=== PATIENT | female | born 1980 | race Caucasian/White ===

== ENCOUNTER 2020-11-27 09:48 | Outpatient (CLI) | payer MEDICARE ==
[2020-11-28 00:34] LABS: SARS-CoV-2 PCR by NAA Not Detected (NotDetected)
== END 2020-11-27 09:49 | disposition home or self-care (01) ==
LOC: CSHLAB 09:48
PROVIDERS: ATTEND Otolaryngology Plastic Surgery within the Head & Neck
DX: Z01.812 Encounter for preprocedural laboratory examination (principal); Z20.822 Contact with and (suspected) exposure to COVID-19; K13.70 Unspecified lesions of oral mucosa; F17.210 Nicotine dependence, cigarettes, uncomplicated
CPT/HCPCS: 85014; U0003; U0005

== ENCOUNTER 2021-09-01 19:05 | Inpatient (IN) | payer MEDICARE ==
[2021-09-01 19:49] LABS: Bilirubin Neg (Negative); Blood, Urine Negative (Negative); Clarity Clear (Clear); Glucose, Urine (Dipstick) Normal (Negative); Ketone, Urine Negative (Negative); Leukocyte 25 (Negative); Nitrite Negative (Negative); Protein, Urine (Dipstick) Negative (Neg-Trace); Specific Gravity, Urine 1.005 (1.002-1.036); Urobilinogen Normal mg/dL (Less than 2); pH, Urine 6.5 (5.0-9.0)
[2021-09-01] MEDS ORDERED: Morphine 4 MG/ML VIAL ONE (19:52)
[2021-09-01 19:53] LABS: #Basophils 0.1 10x3/uL (0.0-0.2); #Eosinphils 0.2 10x3/uL (0.0-0.5); #Neutrophils 8.8 10x3/uL (1.5-8.4); %Basophils 0.8 % (0.0-2.0); %Eosinophils 1.8 % (0.0-6.0); %Monocytes 8.6 % (0.0-10.0); %Neutrophils 73.4 % (40.0-75.0); Hemoglobin 16.9 g/dL (12.0-15.5); Mean Corpuscular HGB CONC 33.9 g/dL (32.0-36.0); Mean Corpuscular Hemoglobin 33.7 pg (27.0-33.0); Mean Corpuscular Volume 99.4 fl (81.6-98.3); Mean Platelet Volume 9.7 fl (7.4-10.4); Platelet Count 358 10x3/uL (150-450); RBC Distribution Width 11.9 % (11.5-14.5); Red Blood Cell (RBC) Count 5.02 10x6/uL (3.90-5.03)
[2021-09-01] MEDS ORDERED: Ketorolac Tromethamine 30 MG/ML VIAL ONE (19:53)
[2021-09-01 19:56] LABS: BHCG - Serum Negative (NEGATIVE); Pregs Control Background? CLEAR/WHITE (CLR/WHITE); Pregs Control Bar Appear? YES (CONTROL BAR)
[2021-09-01 19:59] LABS: Bacteria/HPF 1+ HPF (None Seen); Mucous/LPF Rare LPF (<2+); RBC/HPF None Seen HPF (0-3); Squamous Epithelial 0-3 HPF (0-3); WBC/HPF 0-3 HPF (0-3)
[2021-09-01 20:04] LABS: ALT (SGPT) 262 U/L (8-55); AST (SGOT) 711 U/L (5-34); Albumin 4.4 g/dL (3.5-5.0); Alkaline Phosphatase 347 U/L (40-110); Anion Gap 16 mmol/L (10-20); BUN (Urea Nitrogen) 6 mg/dL (7.0-18.7); Bilirubin, Total 0.9 mg/dL (0.2-1.2); Calc. Creatinine Clearance 0 mL/min (70-130); Carbon Dioxide 27 mmol/L (22-29); Chloride 102 mmol/L (98-107); Globulin 3.3 g/dL (2.4-3.5); Glucose 88 mg/dL (70-105); Lipase 40 U/L (8-78); Potassium 3.5 mmol/L (3.5-5.1); Protein, Total 7.7 g/dL (6.0-8.3); Sodium 141 mmol/L (136-145)
[2021-09-01] MEDS ORDERED: Multivitamins, Adult 10 ML, Folic Acid 1 MG in Dextrose 5 %-0.45 % NaCl 1,000 ML IV SCH (21:00)
[2021-09-01] MEDS ORDERED: Thiamine HCl 200 MG/2 ML VIAL SLOW IVP SCH (21:00)
[2021-09-01] MEDS ORDERED: Ondansetron PF 4 MG/2 ML Vial IVP PRN (22:20)
[2021-09-01] MEDS ORDERED: Senokot S 8.6-50 MG TAB PO PRN (22:20)
[2021-09-01] MEDS ORDERED: Ondansetron ODT 4 MG TAB PO PRN ×2 (22:20→22:25)
[2021-09-01] MEDS ORDERED: Lorazepam 1 MG TAB PO PRN (22:25)
[2021-09-01] MEDS ORDERED: Lorazepam 2 MG/ML VIAL IM PRN (22:25)
[2021-09-01] MEDS ORDERED: Electrolyte Replacement Protocol 1 EACH FS SCH (22:30)
[2021-09-01 22:48] VITALS: BMI 24.9
[2021-09-01] MEDS ORDERED: 1/2 NS w/KCL 20 mEq 1,000 ML ONE ×2 (23:23→23:28)
[2021-09-01] MEDS: Nicotine 21 MG PATCH TD SCH (23:27)
[2021-09-01] MEDS: Lorazepam 1 MG TAB PO SCH (23:27)
[2021-09-01] MEDS: 1/2 NS w/KCL 20 mEq 1,000 ML IV SCH (23:28)
[2021-09-02 00:55] LABS: Amphetamine Not Detected (NotDetected); Barbiturates Screen Not Detected (NotDetected); Benzodiazepine Screen Not Detected (NotDetected); Cocaine Metabolite Screen Not Detected (NotDetected); Methadone Not Detected (NotDetected); Methamphetamine Not Detected (NotDetected); Opiate Screen Detected (NotDetected); Oxycodone Screen Not Detected (NotDetected); Phencyclidine (PCP) Not Detected (NotDetected); THC/Cannabinoid Screen Detected (NotDetected); Tricyclic Screen Not Detected (NotDetected)
[2021-09-02] MEDS: 1/2 NS w/KCL 20 mEq 1,000 ML IV SCH ×3 (01:30→17:02)
[2021-09-02] MEDS: Morphine 4 MG/ML VIAL SLOW IVP PRN ×4 (01:38→21:36)
[2021-09-02] MEDS: Lorazepam 1 MG TAB PO SCH ×4 (03:49→22:12)
[2021-09-02] MEDS ORDERED: Albuterol Sulfate 2.5 mg/3 ml Neb NEB PRN (03:58)
[2021-09-02 04:38] LABS: #Basophils 0.1 10x3/uL (0.0-0.2); #Eosinphils 0.4 10x3/uL (0.0-0.5); #Monocytes 0.7 10x3/uL (0.0-1.1); #Neutrophils 4.1 10x3/uL (1.5-8.4); %Basophils 1.1 % (0.0-2.0); %Eosinophils 5.3 % (0.0-6.0); %Lymphocytes 28.6 % (18.0-47.0); %Monocytes 9.8 % (0.0-10.0); %Neutrophils 54.9 % (40.0-75.0); Hemoglobin 14.6 g/dL (12.0-15.5); Mean Corpuscular HGB CONC 34.2 g/dL (32.0-36.0); Mean Corpuscular Hemoglobin 34.1 pg (27.0-33.0); Mean Corpuscular Volume 99.8 fl (81.6-98.3); Mean Platelet Volume 10.1 fl (7.4-10.4); Platelet Count 287 10x3/uL (150-450); RBC Distribution Width 11.9 % (11.5-14.5); Red Blood Cell (RBC) Count 4.28 10x6/uL (3.90-5.03); White Blood Cell (WBC) Count 7.5 10x3/uL (3.5-10.5)
[2021-09-02 04:48] LABS: INR-International Normal Ratio 0.9; PTT 27.3 sec (22.0-33.0); Prothrombin Time 9.3 sec (9.5-12.1)
[2021-09-02 04:53] LABS: Magnesium 1.9 mg/dL (1.6-2.6); Phosphorus 3.9 mg/dL (2.3-4.7)
[2021-09-02 04:57] LABS: ALT (SGPT) 229 U/L (8-55); AST (SGOT) 310 U/L (5-34); Albumin 3.5 g/dL (3.5-5.0); Alkaline Phosphatase 325 U/L (40-110); Anion Gap 15 mmol/L (10-20); BUN (Urea Nitrogen) 6 mg/dL (7.0-18.7); Bilirubin, Total 0.6 mg/dL (0.2-1.2); Calc. Creatinine Clearance 142 mL/min (70-130); Calcium 8.4 mg/dL (7.8-10.44); Carbon Dioxide 24 mmol/L (22-29); Chloride 107 mmol/L (98-107); Globulin 2.5 g/dL (2.4-3.5); Glucose 81 mg/dL (70-105); Potassium 3.9 mmol/L (3.5-5.1); Sodium 142 mmol/L (136-145)
[2021-09-02] MEDS ORDERED: Magnesium 2 GM/50 ML(in water) 2 GM in Premix Bag 1 BAG IVPB SCH (05:30)
[2021-09-02] MEDS ORDERED: 1/2 NS w/KCL 20 mEq 1,000 ML IV SCH (06:00)
[2021-09-02] MEDS ORDERED: Iopamidol 370 76% 100 ML VIAL ONE (08:00)
[2021-09-02] MEDS: Enoxaparin Sodium 40 MG/0.4 ML SYRINGE SC SCH (08:35)
[2021-09-02] MEDS: Folic Acid 1 MG TAB PO SCH (08:35)
[2021-09-02] MEDS: Multivit, Therapeutic 1 TAB PO SCH (08:35)
[2021-09-02] MEDS: Morphine 2 MG/ML VIAL SLOW IVP PRN (08:46)
[2021-09-02 13:43] LABS: HBCM Index 0.09 S/CO (0-0.79); Hep A IgM AB Non-Reactive (NonReactive); Hep C IgG Ab Non-Reactive (NonReactive); Hep C Index 0.07 S/CO (0-0.79); Hepatitis B Core IgM Abs Non-Reactive (NonReactive)
[2021-09-02 14:45] LABS: HBSAg Index 0.26 S/CO (0-0.99); Hep B Surf Ag Non-Reactive S/CO (NonReactive)
[2021-09-02] MEDS: cefTRIAXone\\ROCEPHIN 1 GM in Sodium Chloride 0.9% 100 ML IVPB SCH (17:01)
[2021-09-02] MEDS: Mometasone 100 MCG/PUFF (1 INHALER) INH SCH (19:46)
[2021-09-02] MEDS: Thiamine HCl 200 MG/2 ML VIAL SLOW IVP SCH (21:25)
[2021-09-02] MEDS: Pantoprazole 40 MG VIAL IVP SCH (21:32)
[2021-09-02] MEDS ORDERED: Lorazepam 1 MG TAB PO PRN (22:25)
[2021-09-02] MEDS: Nicotine 21 MG PATCH TD SCH (23:05)
[2021-09-02] MEDS ORDERED: WATER IV SCH ×2 (23:30)
[2021-09-02] MEDS ORDERED: DEXTROSE 5% IV SCH ×2 (23:30)
[2021-09-02] MEDS ORDERED: ACETYLCYSTEINE IV SCH ×2 (23:30)
[2021-09-03 00:12] LABS: Acetaminophen Less than 10.0 mcg/mL (10.0-30.0)
[2021-09-03] MEDS ORDERED: WATER IV SCH ×2 (00:30→04:30)
[2021-09-03] MEDS ORDERED: ACETYLCYSTEINE IV SCH ×2 (00:30→04:30)
[2021-09-03] MEDS ORDERED: DEXTROSE 5% IV SCH ×2 (00:30→04:30)
[2021-09-03] MEDS: Morphine 2 MG/ML VIAL SLOW IVP PRN (01:27)
[2021-09-03 04:22] LABS: #Basophils 0.1 10x3/uL (0.0-0.2); #Eosinphils 0.3 10x3/uL (0.0-0.5); #Monocytes 0.6 10x3/uL (0.0-1.1); #Neutrophils 7.6 10x3/uL (1.5-8.4); %Basophils 0.6 % (0.0-2.0); %Eosinophils 3.4 % (0.0-6.0); %Lymphocytes 13.4 % (18.0-47.0); %Monocytes 6.1 % (0.0-10.0); %Neutrophils 76.2 % (40.0-75.0); Hemoglobin 14.3 g/dL (12.0-15.5); Mean Corpuscular HGB CONC 34.5 g/dL (32.0-36.0); Mean Corpuscular Hemoglobin 33.6 pg (27.0-33.0); Mean Corpuscular Volume 97.6 fl (81.6-98.3); Platelet Count 273 10x3/uL (150-450); RBC Distribution Width 11.7 % (11.5-14.5); Red Blood Cell (RBC) Count 4.25 10x6/uL (3.90-5.03)
[2021-09-03 04:26] LABS: ALT (SGPT) 250 U/L (8-55); AST (SGOT) 216 U/L (5-34); Albumin 3.8 g/dL (3.5-5.0); Alkaline Phosphatase 338 U/L (40-110); Anion Gap 14 mmol/L (10-20); BUN (Urea Nitrogen) 4 mg/dL (7.0-18.7); Bilirubin, Total 0.5 mg/dL (0.2-1.2); Calc. Creatinine Clearance 140 mL/min (70-130); Calcium 8.5 mg/dL (7.8-10.44); Carbon Dioxide 25 mmol/L (22-29); Chloride 104 mmol/L (98-107); Globulin 2.8 g/dL (2.4-3.5); Glucose 140 mg/dL (70-105); Iron Binding Capacity, Total 306 mcg/dL (265-497); Potassium 3.7 mmol/L (3.5-5.1); Protein, Total 6.6 g/dL (6.0-8.3); Sodium 139 mmol/L (136-145)
[2021-09-03] MEDS: Lorazepam 1 MG TAB PO SCH ×3 (04:41→17:03)
[2021-09-03 04:44] LABS: Ferritin 188.38 ng/mL (10-291)
[2021-09-03] MEDS ORDERED: Magnesium 2 GM/50 ML(in water) 2 GM in Premix Bag 1 BAG IVPB SCH (04:45)
[2021-09-03] MEDS: Morphine 4 MG/ML VIAL SLOW IVP PRN ×2 (05:41→18:01)
[2021-09-03] MEDS: Mometasone 100 MCG/PUFF (1 INHALER) INH SCH ×2 (07:23→19:45)
[2021-09-03] MEDS: Folic Acid 1 MG TAB PO SCH (10:09)
[2021-09-03] MEDS: Enoxaparin Sodium 40 MG/0.4 ML SYRINGE SC SCH (10:09)
[2021-09-03] MEDS: Multivit, Therapeutic 1 TAB PO SCH (10:09)
[2021-09-03] MEDS: cefTRIAXone\\ROCEPHIN 1 GM in Sodium Chloride 0.9% 100 ML IVPB SCH (13:46)
[2021-09-03] MEDS: Pantoprazole 40 MG VIAL IVP SCH (21:21)
[2021-09-03] MEDS: Thiamine HCl 200 MG/2 ML VIAL SLOW IVP SCH (21:22)
[2021-09-03] MEDS ORDERED: Lorazepam 1 MG TAB PO PRN (22:25)
[2021-09-03] MEDS: Nicotine 21 MG PATCH TD SCH (22:49)
[2021-09-03] MEDS: Lorazepam 0.5 MG TAB PO SCH (22:49)
[2021-09-04] MEDS: Morphine 4 MG/ML VIAL SLOW IVP PRN ×3 (03:46→18:09)
[2021-09-04 04:29] LABS: ALT (SGPT) 230 U/L (8-55); AST (SGOT) 143 U/L (5-34); Albumin 3.4 g/dL (3.5-5.0); Alkaline Phosphatase 306 U/L (40-110); Anion Gap 14 mmol/L (10-20); BUN (Urea Nitrogen) 4 mg/dL (7.0-18.7); Bilirubin, Total 0.3 mg/dL (0.2-1.2); Calc. Creatinine Clearance 142 mL/min (70-130); Calcium 8.9 mg/dL (7.8-10.44); Carbon Dioxide 24 mmol/L (22-29); Chloride 107 mmol/L (98-107); Globulin 2.4 g/dL (2.4-3.5); Glucose 132 mg/dL (70-105); Magnesium 1.9 mg/dL (1.6-2.6); Potassium 3.6 mmol/L (3.5-5.1); Protein, Total 5.8 g/dL (6.0-8.3); Sodium 141 mmol/L (136-145)
[2021-09-04] MEDS: Lorazepam 0.5 MG TAB PO SCH ×3 (04:38→18:09)
[2021-09-04] MEDS ORDERED: Magnesium 2 GM/50 ML(in water) 2 GM in Premix Bag 1 BAG IVPB SCH (05:45)
[2021-09-04] MEDS: Mometasone 100 MCG/PUFF (1 INHALER) INH SCH ×2 (07:04→19:41)
[2021-09-04] MEDS: Folic Acid 1 MG TAB PO SCH (08:27)
[2021-09-04] MEDS: Multivit, Therapeutic 1 TAB PO SCH (08:27)
[2021-09-04] MEDS: Morphine 2 MG/ML VIAL SLOW IVP PRN (08:28)
[2021-09-04] MEDS: Enoxaparin Sodium 40 MG/0.4 ML SYRINGE SC SCH (08:29)
[2021-09-04] MEDS: cefTRIAXone\\ROCEPHIN 1 GM in Sodium Chloride 0.9% 100 ML IVPB SCH (12:09)
[2021-09-04] MEDS ORDERED: HYDROcodone/Acetaminophen 5/325 mg Tablet PO PRN (18:49)
[2021-09-04] MEDS ORDERED: Morphine 4 MG/ML VIAL SLOW IVP PRN (18:50)
[2021-09-04] MEDS: HYDROcodone/Acetaminophen 10/325 mg Tablet PO PRN (21:27)
[2021-09-04] MEDS: Pantoprazole 40 MG VIAL IVP SCH (21:27)
[2021-09-04] MEDS: Thiamine HCl 200 MG/2 ML VIAL SLOW IVP SCH (21:28)
[2021-09-04] MEDS ORDERED: Lorazepam 0.5 MG TAB PO PRN (22:25)
[2021-09-04] MEDS: Nicotine 21 MG PATCH TD SCH (23:19)
[2021-09-05 05:09] LABS: ALT (SGPT) 152 U/L (8-55); AST (SGOT) 43 U/L (5-34); Albumin 3.2 g/dL (3.5-5.0); Alkaline Phosphatase 251 U/L (40-110); Anion Gap 13 mmol/L (10-20); BUN (Urea Nitrogen) 6 mg/dL (7.0-18.7); Bilirubin, Total 0.2 mg/dL (0.2-1.2); Calc. Creatinine Clearance 140 mL/min (70-130); Calcium 8.4 mg/dL (7.8-10.44); Carbon Dioxide 25 mmol/L (22-29); Chloride 108 mmol/L (98-107); Globulin 2.3 g/dL (2.4-3.5); Glucose 125 mg/dL (70-105); Potassium 3.9 mmol/L (3.5-5.1); Protein, Total 5.5 g/dL (6.0-8.3); Sodium 142 mmol/L (136-145)
[2021-09-05] MEDS: Mometasone 100 MCG/PUFF (1 INHALER) INH SCH (07:30)
[2021-09-05] MEDS: Enoxaparin Sodium 40 MG/0.4 ML SYRINGE SC SCH (09:13)
[2021-09-05] MEDS: Multivit, Therapeutic 1 TAB PO SCH (09:13)
[2021-09-05] MEDS: Folic Acid 1 MG TAB PO SCH (09:13)
[2021-09-05] MEDS: HYDROcodone/Acetaminophen 10/325 mg Tablet PO PRN (09:18)
[2021-09-05 20:30] VITALS: BP 115/65; TEMP 97
[2021-09-05] MEDS ORDERED: Thiamine 100 MG TAB PO SCH (21:00)
[2021-09-05 23:07] LABS: HIV-1 Quantitative, RNA PCR <20 copies/mL (.)
[2021-09-06 15:53] LABS: ANA Symphony (Qualitative) Negative (Negative); ANA Symphony (Quantitative) 0.2 Ratio (< 0.7 Negative); EliA Vaculitis New Method **** NEW METHOD ****; Mitochondrial Ab 0.6 U/mL (<4 Negative); dsDNA IgG Antibody 0.6 IU/mL (<10 Negative)
== END 2021-09-05 13:30 | disposition home or self-care (01) | DRG 434 ==
LOC: CSHERS 19:05 → OBSVTOIN 21:25 → CSHTELE 21:25
PROVIDERS: ADMIT Hospitalist; ATTEND Internal Medicine
DX: K70.10 Alcoholic hepatitis without ascites (principal); J45.909 Unspecified asthma, uncomplicated; F17.210 Nicotine dependence, cigarettes, uncomplicated; G89.29 Other chronic pain; M54.50 Low back pain, unspecified; R82.81 Pyuria; F12.10 Cannabis abuse, uncomplicated; K70.0 Alcoholic fatty liver; K80.50 Calculus of bile duct without cholangitis or cholecystitis without obstruction; D35.00 Benign neoplasm of unspecified adrenal gland; F11.90 Opioid use, unspecified, uncomplicated; Z20.822 Contact with and (suspected) exposure to COVID-19; Z79.891 Long term (current) use of opiate analgesic; Z79.899 Other long term (current) drug therapy; Z90.49 Acquired absence of other specified parts of digestive tract; Z80.8 Family history of malignant neoplasm of other organs or systems; Z98.890 Other specified postprocedural states; Z71.6 Tobacco abuse counseling
CPT/HCPCS: 36415; 74170; 74176; 76705; 80053; 80074; 80143; 80306; 81003; 81015; 82390; 82607; 82728; 82746; 82977; 83516; 83550; 83690; 83735; 84100; 84703; 85025; 85610; 85730; 86015; 86038; 86225; 87086; 87536; 94640; 94760; 80307; C9113; J0132; J0696; J1650; J1885; J2270; J2405; J3411; J3475; J3480; J3490; J7042; J7070; J7620; Q9967; U0003; U0005